=== PATIENT | male | born 1940 | race Caucasian/White ===

== ENCOUNTER 2021-08-13 16:07 | Emergency (ER) | payer MEDICARE, BC ==
[~2021-08-13] VITALS: Ht 185.4 cm; Wt 81.8 kg
[~2021-08-13 16:07] MED LIST: AMIO200T62 PO; ASCO500C17 PO; ASPI-1265 PO; ATOR40TA72 PO; CARV6.253 PO; CLOP75TA34 PO; DIGO125T2 PO; FERR325T28 PO; FURO40TA4 PO; GLIP5TAB13 PO; LISI5TAB22; MAGN400C PO; MAGN400T56 PO; MULT-1085 PO; OMEG1CAP46 PO; PIOG15TA8 PO; TRIA15CR61 TOP; VITD400T PO; [UNRECOGNIZED DRUG - CODE] PO
[2021-08-13 17:38] LABS: BASOPHILS # (AUTO) 0.1 X10'3 (0-0.2); BASOPHILS % (AUTO) 1.2 % (0-1); EOSINOPHILS # (AUTO) 0.1 X10'3 (0-0.9); EOSINOPHILS % (AUTO) 1.8 % (0-6); HEMATOCRIT 22.1 % (42.0-52.0); LYMPHOCYTES # (AUTO) 0.9 X10'3 (1.1-4.8); LYMPHOCYTES % (AUTO) 13.8 % (21-51); MEAN CORPUSCULAR HEMOGLOBIN 27.1 PG (27.0-31.0); MEAN CORPUSCULAR HGB CONC 30.5 g/dL (33.0-36.5); MEAN CORPUSCULAR VOLUME 88.8 FL (78-98); MEAN PLATELET VOLUME 8.3 FL (7.4-10.4); MONOCYTES # (AUTO) 0.7 X10'3 (0-0.9); MONOCYTES % (AUTO) 10.9 % (2-12); NEUTROPHILS # (AUTO) 4.7 X10'3 (1.8-7.7); NEUTROPHILS % (AUTO) 72.3 % (42-75); PLATELET COUNT 337 X10'3 (140-440); RED BLOOD COUNT 2.49 X10'6 (4.70-6.10); RED CELL DISTRIBUTION WIDTH 16.3 % (11.5-14.5); WHITE BLOOD COUNT 6.5 X10'3 (4.5-11.0)
[2021-08-13 17:45] LABS: HEMOGLOBIN 6.8 g/dl (14.0-17.9)
[2021-08-13 17:52] LABS: ALANINE AMINOTRANSFERASE 60 U/L (12-78); ALBUMIN 3.2 G/DL (3.4-5.0); ALBUMIN/GLOBULIN RATIO 0.7 (1.1-1.5); ALKALINE PHOSPHATASE 115 IU/L (46-116); ANION GAP 9 (8-16); ASPARTATE AMINO TRANSFERASE 30 U/L (10-37); BILIRUBIN,TOTAL 0.3 MG/DL (0.1-1.0); BLOOD UREA NITROGEN 49 MG/DL (7-18); BUN/CREATININE RATIO 24.7 (5.4-32.0); CALCIUM 8.9 MG/DL (8.5-10.1); CHLORIDE 107 MMOL/L (99-107); CREATININE 1.98 MG/DL (0.60-1.10); GLUCOSE 226 MG/DL (70-104); POTASSIUM 4.2 MMOL/L (3.5-5.1); SODIUM 142 MMOL/L (135-145); TOTAL CARBON DIOXIDE 25.9 MMOL/L (24-32); TOTAL PROTEIN 7.7 G/DL (6.4-8.2); eGFR 33 ML/MIN
--- NOTE | 2021-08-13 20:15 | NUR ---
PT ROOMED. ASSUMED CARE
[2021-08-13 21:05] LABS: % IRON SATURATION 4 % (11-46); IRON 18 UG/DL (53-167); TOTAL IRON BINDING CAPACITY 499 UG/DL (259-388)
[2021-08-13 22:08] VITALS: BP 142/71
[2021-08-13 22:33] VITALS: BP 143/73
[2021-08-13 23:10] VITALS: BP 147/76
[2021-08-13 23:38] VITALS: BP 146/80
[2021-08-14 00:13] VITALS: BP 151/87
[2021-08-14 00:55] VITALS: BP 148/78
== END 2021-08-14 00:45 | disposition home or self-care (01) ==
LOC: ER 16:08
DX: D64.9 Anemia, unspecified (principal); R42 Dizziness and giddiness; R53.83 Other fatigue; I12.9 Hypertensive chronic kidney disease with stage 1 through stage 4 chronic kidney disease, or unspecified chronic kidney disease; E11.22 Type 2 diabetes mellitus with diabetic chronic kidney disease; N18.9 Chronic kidney disease, unspecified; Z95.0 Presence of cardiac pacemaker; Z98.890 Other specified postprocedural states; Z79.82 Long term (current) use of aspirin; Z79.899 Other long term (current) drug therapy
CPT/HCPCS: 36415; 36430; 80053; 82607; 83540; 83550; 85025; 85610; 86885; 86900; 86901; 86920; 93005; 99285; P9016